=== PATIENT | female | born 1975 | race Caucasian/White ===

== ENCOUNTER 2017-07-26 09:23 | Outpatient (CLI) | payer OTHER | END 2017-07-26 09:24 | disposition home or self-care (01) | LOC: BICMAMMO 09:23 | PROVIDERS: ATTEND Obstetrics & Gynecology | DX: Z12.31 Encounter for screening mammogram for malignant neoplasm of breast (principal) | CPT/HCPCS: 77063; 77067 ==

== ENCOUNTER 2018-09-26 12:06 | Outpatient (CLI) | payer OTHER ==
--- NOTE | 2018-09-26 12:35 | RAD ---
Right wrist 3 views HISTORY: Right wrist pain. FINDINGS: Scaphoid waist and ulnar styloid are intact. No acute fracture, dislocation, or aggressive osseous erosions. Joint spaces preserved IMPRESSION: No acute osseous abnormalities are demonstrated.
--- NOTE | 2018-09-26 12:35 | RAD ---
Left wrist 3 views HISTORY: Wrist pain. FINDINGS: Scaphoid waist and ulnar styloid are intact. Joint spaces preserved. No acute fracture, dis location, or aggressive osseous erosions. IMPRESSION: No acute osseous abnormalities are demonstrated.
--- NOTE | 2018-09-26 14:43 | RAD ---
THREE VIEWS OF THE RIGHT INDEX FINGER: 09/26/18 HISTORY: Right index finger arthralgia and pain. FINDINGS: Three views of the right index finger shows no evidence of acute fracture or dislocation. No degenera tive changes are seen. Mild soft tissue swelling is seen. IMPRESSION: No evidence of acute osseous abnormality. POS: C
== END 2018-09-26 12:07 | disposition home or self-care (01) ==
LOC: SCSRAD 12:06
PROVIDERS: ATTEND Family Medicine
DX: M25.531 Pain in right wrist (principal); M25.532 Pain in left wrist; M25.541 Pain in joints of right hand
CPT/HCPCS: 36415; 83520; 85652; 86140; 86200